=== PATIENT | male | born 1955 | race Hispanic/Latino ===

== ENCOUNTER → 2019-03-28 | Outpatient (CLI) | payer OTHER | END | disposition home or self-care (01) | LOC: RAH 09:57 | PROVIDERS: ATTEND Family Medicine | DX: Z13.6 Encounter for screening for cardiovascular disorders (principal) | CPT/HCPCS: 75571 ==

== ENCOUNTER 2019-05-01 07:42 | Observation (INO) | payer OTHER ==
[2019-04-27 11:00] VITALS: BP 131/75
[2019-04-27 11:24] LABS: BASOPHILS % (AUTO) 0.8 % (0.0-5.0); EOSINOPHILS % (AUTO) 3.4 % (0.0-8.0); HEMATOCRIT 43.2 % (42-54); LYMPHOCYTES % (AUTO) 21.5 % (21.0-51.0); MEAN CORPUSCULAR HEMOGLOBIN 30.6 pg (27.0-33.0); MEAN CORPUSCULAR HGB CONC 33.8 g/dL (32.0-36.0); MEAN CORPUSCULAR VOLUME 90.5 fL (79-99); MONOCYTES % (AUTO) 8.6 % (3.0-13.0); NEUTROPHILS % (AUTO) 65.7 % (40.0-77.0); PLATELET COUNT (AUTO) 169 K/uL (130-400); RED BLOOD CELL COUNT(AUTO) 4.77 MIL/uL (4.50-6.20); RED CELL DISTRIBUTION WIDTH 13.1 % (11.0-15.5); WHITE BLOOD COUNT (AUTO) 6.4 K/uL (4.8-10.8)
[2019-04-27 11:25] LABS: APPEARANCE,URINE Clear (CLEAR); BILIRUBIN,URINE Negative (NEGATIVE); COLOR,URINE Yellow (YELLOW); GLUCOSE, URINE (UA) Negative (NEGATIVE); KETONES,URINE Negative (NEGATIVE); LEUKOCYTE ESTERASE ,URINE Negative (NEGATIVE); NITRATE,URINE Negative (NEGATIVE); OCCULT BLOOD,URINE Negative (NEGATIVE); PH,URINE 7.5 (5.0-8.0); PROTEIN,URINE Negative (NEGATIVE)
[2019-04-27 11:37] LABS: POTASSIUM 4.1 mmol/L (3.5-5.1)
[2019-04-27 11:59] LABS: INR 0.99 (0.85-1.15); PARTIAL THROMBOPLASTIN TIME 30.6 SEC (26.3-35.5); PROTHROMBIN TIME 10.4 SEC (9.6-11.6)
[2019-05-01] VITALS (12 sets, daily range): BP systolic 139–167; BP diastolic 75–87
[~2019-05-01] VITALS: Ht 182.9 cm; Wt 106.0 kg
[~2019-05-01 07:42] MED LIST: ASPI-1181 PO; HYDR12.54 PO; ISOS30TA6 PO; LOSA100T58 PO; METF-444 PO; MONT10TA24 PO; OMEP-50 PO
[2019-05-01] MEDS ORDERED: SODIUM CHLORIDE 0.9% 1000ML 1,000 ML IV ONE (09:06)
[2019-05-01] MEDS ORDERED: NITROGLYCERIN 5 MG/ML 10 ML VIAL IV ONE (09:06)
[2019-05-01] MEDS ORDERED: IOHEXOL-350 50ML VIAL IV ONE ×2 (09:06→11:12)
[2019-05-01] MEDS ORDERED: LIDOCAINE HCL 2% 20ML ONE (09:06)
[2019-05-01] MEDS ORDERED: IOHEXOL 350 MG/ML 100ML INFUS..BTL IV ONE ×2 (09:06→10:34)
[2019-05-01] MEDS ORDERED: MIDAZOLAM HCL 1 MG/ML 2ML VIAL ONE (09:44)
[2019-05-01] MEDS ORDERED: ADENOSINE 90MG/30ML VIAL IV ONE ×2 (10:23→10:28)
[2019-05-01] MEDS ORDERED: HEPARIN SODIUM 1000UNIT/ML 10ML VIAL ONE (10:28)
[2019-05-01] MEDS ORDERED: BIVALIRUDIN 250 MG/VIAL IV ONE ×2 (10:45→11:25)
[2019-05-01] MEDS ORDERED: PRASUGREL HCL 10 MG TABLET ONE (10:55)
[2019-05-01] MEDS ORDERED: MORPHINE SULFATE 4 MG/1ML SYG ONE ×3 (10:56→11:47)
[2019-05-01] MEDS ORDERED: IOHEXOL-350 75 ML VIAL IV ONE (11:31)
[2019-05-01] MEDS ORDERED: SODIUM CHLORIDE 0.9% 1000ML 1,000 ML IV SCH (12:05)
[2019-05-01] MEDS ORDERED: ACETAMINOPHEN 325 MG TAB PO PRN (12:15)
--- NOTE | 2019-05-01 16:00 | NUR ---
GAVE REPORT TO WANDER BREEN RN NO CONCERNS VOICED
--- NOTE | 2019-05-01 17:00 | NUR ---
DIET PT TOLERATED DIET WELL, ASSISTED PT.
--- NOTE | 2019-05-01 17:50 | NUR ---
REPORT REPORT GIVEN TO GLENNY SAEED. PT STABLE. NO COMPLAINTS MADE. CATH SITE TO RIGHT GROIN REMAINS SOFT, DRESSING DRY AND INTACT, SLIGHT BRUISING NOTED.
--- NOTE | 2019-05-01 18:00 | NUR ---
TRANSFER PT TRANSFERRED TO ROOM 202 VIA BED BY GLENNY TRAYLOR. PT STABLE. REMAINS ON BEDREST.
[2019-05-01] MEDS ORDERED: ATORVASTATIN CALCIUM 40 MG TABLET PO SCH (21:00)
[2019-05-02 00:32] VITALS: BP 140/74
[2019-05-02 04:06] LABS: MEAN CORPUSCULAR HGB CONC 33.2 g/dL (32.0-36.0); MEAN CORPUSCULAR VOLUME 90.6 fL (79-99); PLATELET COUNT (AUTO) 167 K/uL (130-400); RED CELL DISTRIBUTION WIDTH 13.3 % (11.0-15.5)
[2019-05-02 04:13] LABS: POTASSIUM 3.8 mmol/L (3.5-5.1)
[2019-05-02 04:16] VITALS: BP 138/82
--- NOTE | 2019-05-02 07:45 | NUR ---
Patient alert and awake. Right groin assessed. Bruising noted. No hematoma. No s/s of bleeding. patient assisted up to chair. tolerated well. Addendum: 05/02/19 at 1112 by WALDO KONG RN RN Amended: Links added.
[2019-05-02 08:58] VITALS: BP 135/69
[2019-05-02] MEDS ORDERED: LOSARTAN 100 MG TABLET PO SCH (09:00)
[2019-05-02] MEDS ORDERED: HYDROCHLOROTHIAZIDE 25 MG TABLET PO SCH (09:00)
[2019-05-02] MEDS ORDERED: ASPIRIN 81 MG EC TAB PO SCH (09:00)
[2019-05-02] MEDS ORDERED: MONTELUKAST SODIUM 10 MG TAB PO SCH (09:00)
[2019-05-02] MEDS ORDERED: PRASUGREL HCL 10 MG TABLET PO SCH (09:00)
[2019-05-02] MEDS ORDERED: PANTOPRAZOLE SODIUM 40 MG TABLET.DR PO SCH (09:00)
--- NOTE | 2019-05-02 12:06 | NUR ---
Patient discharged in stable condition. Patient instructed on [facility] post procedure. Monitoring Right groin for any s/s of bleeding, right leg discoloration. If any Appt with Dr. Sanchez for Wednesday at 9am and pt is f/u with pcp Dr. Laney Shipman in [place] as a walk in for 3-5 days. Instructed to call 911 if chest pain, SOB, changes in mental status, weakness, severe pain or n/v. Pt verbalized understanding to all teaching. IV removed to left wrist. pt tolerated. Telepack rememoved
== END 2019-05-02 12:10 | disposition home or self-care (01) ==
LOC: DAH 07:42 → DAHIP 07:43 → 2AH 18:24
PROVIDERS: ADMIT Internal Medicine; ATTEND Internal Medicine
DX: I25.118 Atherosclerotic heart disease of native coronary artery with other forms of angina pectoris (principal); E66.9 Obesity, unspecified; E11.9 Type 2 diabetes mellitus without complications; E78.5 Hyperlipidemia, unspecified; I10 Essential (primary) hypertension; Z82.49 Family history of ischemic heart disease and other diseases of the circulatory system; Z79.899 Other long term (current) drug therapy; Z79.01 Long term (current) use of anticoagulants
CPT/HCPCS: 36415 ×2; 71045; 80048 ×2; 80061; 81003; 82948 ×4; 85025; 85027; 85610; 85730; 92921; 93005 ×2; 93458; 93571; A4606; C1725; C1760 ×3; C1769 ×4; C1876; C1887 ×2; C1894 ×2; C9600; G0378 ×24; J0153 ×2; J0583 ×2; J1644 ×3; J2250; J2270 ×3; J3490 ×2; J7030 ×2; Q9965 ×2; Q9967 ×4; 99156; 99157

== ENCOUNTER 2019-05-10 22:00 | Emergency (ER) | payer OTHER ==
[~2019-05-10 22:00] MED LIST changes: -ISOS30TA6 PO; -METF-444 PO
[2019-05-10] MEDS ORDERED: SODIUM CHLORIDE 0.9% 500ML 500 ML IV ONE (22:28)
[2019-05-10 22:29] LABS: BASOPHILS % (AUTO) 1.8 % (0.0-5.0); EOSINOPHILS % (AUTO) 2.6 % (0.0-8.0); HEMATOCRIT 41.5 % (42-54); LYMPHOCYTES % (AUTO) 10.7 % (21.0-51.0); MEAN CORPUSCULAR HGB CONC 32.9 g/dL (32.0-36.0); MEAN CORPUSCULAR VOLUME 91.3 fL (79-99); MONOCYTES % (AUTO) 6.5 % (3.0-13.0); NEUTROPHILS % (AUTO) 78.4 % (40.0-77.0); PLATELET COUNT (AUTO) 224 K/uL (130-400); RED BLOOD CELL COUNT(AUTO) 4.55 MIL/uL (4.50-6.20); RED CELL DISTRIBUTION WIDTH 13.4 % (11.0-15.5); WHITE BLOOD COUNT (AUTO) 11.9 K/uL (4.8-10.8)
[2019-05-10 22:37] LABS: INR 1.02 (0.85-1.15); PARTIAL THROMBOPLASTIN TIME 29.6 SEC (26.3-35.5); PROTHROMBIN TIME 10.7 SEC (9.6-11.6)
[2019-05-10 22:38] LABS: CREATININE 1.4 mg/dL (0.5-1.5); POTASSIUM 4.1 mmol/L (3.5-5.1)
[2019-05-10 22:48] LABS: ALBUMIN 3.6 g/dL (3.5-5.0); BILIRUBIN,TOTAL 0.6 mg/dL (0.2-1.0); TOTAL PROTEIN, SERUM 7.4 g/dL (6.0-8.3)
[2019-05-10 22:50] LABS: APPEARANCE,URINE Clear (CLEAR); BILIRUBIN,URINE Negative (NEGATIVE); COLOR,URINE Yellow (YELLOW); GLUCOSE, URINE (UA) Negative (NEGATIVE); KETONES,URINE Negative (NEGATIVE); LEUKOCYTE ESTERASE ,URINE Negative (NEGATIVE); NITRATE,URINE Negative (NEGATIVE); OCCULT BLOOD,URINE Negative (NEGATIVE); PROTEIN,URINE Negative (NEGATIVE)
[2019-05-10] MEDS ORDERED: IOHEXOL 350 MG/ML 100ML INFUS..BTL IV ONE (23:38)
[2019-05-10] MEDS ORDERED: SODIUM CHLORIDE 0.9% 1000ML 1,000 ML IV ONE (23:49)
[2019-05-11] MEDS ORDERED: LIDOCAINE HCL 2% VISCOUS 15 ML UDCUP ONE (01:31)
[2019-05-11] MEDS ORDERED: MAG HYDROX/AL HYDROX/SIMETH ES 30 ML SUSP UDCUP ONE (01:31)
[2019-05-11] MEDS ORDERED: FAMOTIDINE/PF 20 MG/2 ML VIAL IV ONE (01:31)
== END 2019-05-11 01:47 | disposition home or self-care (01) ==
LOC: EDH 22:00
DX: H81.399 Other peripheral vertigo, unspecified ear (principal); R07.89 Other chest pain; I10 Essential (primary) hypertension; E78.5 Hyperlipidemia, unspecified; Z95.1 Presence of aortocoronary bypass graft
CPT/HCPCS: 36415; 70450; 71045; 71275; 80053; 81003; 82550; 83874; 83880; 84484; 85025; 85610; 85730; 93005; 96361 ×2; 96374; 99285; J3490; J7030; J7040; Q9967